=== PATIENT | male | born 1960 | race Caucasian/White ===

== ENCOUNTER 2022-02-24 07:15 | Inpatient (IN) | payer MEDICAID ==
[~2022-02-24] VITALS: Ht 157.5 cm; Wt 68.0 kg
[2022-02-24] MEDS ORDERED: IOHEXOL-350 100 ML BOTTLE ONE (08:28)
[2022-02-24 09:14] LABS: BASOPHILS % 0.2 % (0.0-2.0); EOSINOPHILS % 0.4 % (0.0-5.0); HEMOGLOBIN. 15.4 g/dL (14.0-18.0); LYMPHOCYTES % 13.6 % (20.0-50.0); MEAN CORPUSCULAR HEMOGLOBIN 32.7 pg (28.0-32.0); MEAN CORPUSCULAR VOLUME 97.2 fL (80.0-94.0); MEAN PLATELET VOLUME 9.5 fl (7.4-10.4); MONOCYTES % 5.1 % (2.0-8.0); NEUTROPHILS % 80.7 % (40.0-76.0); PLATELET 197 x1000/uL (130-400); RED BLOOD CELL COUNT 4.73 mill/uL (4.7-6.1); RED CELL DISTRIBUTION WIDTH 12.9 % (11.6-14.6)
[2022-02-24 09:17] LABS: CLARITY URINE CLEAR (CLEAR); COLOR URINE YELLOW (YELLOW); KETONES URINE NEGATIVE (NEGATIVE); LEUKOCYTE ESTERASE URINE NEGATIVE (NEGATIVE); NITRITE URINE NEGATIVE (NEGATIVE); OCCULT BLOOD URINE NEGATIVE (NEGATIVE); PH URINE 6.5 (4.5-8.0); PROTEIN URINE NEGATIVE (NEGATIVE); SPECIFIC GRAVITY URINE 1.045 (1.005-1.030); UROBILINOGEN URINE 0.2 E.U./dL (0.2-1.0)
[2022-02-24 09:17] LABS: CHLORIDE 108 mEq/L (98-107)
[2022-02-24 09:25] LABS: ETHANOL BLOOD < 10 mg/dL
[2022-02-24 09:30] LABS: *AMPHETAMINES SCREEN URINE NEGATIVE (NEGATIVE); *BARBITURATES SCREEN URINE NEGATIVE (NEGATIVE); *BENZODIAZEPINES SCREEN URINE NEGATIVE (NEGATIVE); *COCAINE SCREEN URINE NEGATIVE (NEGATIVE); CANNABINOID URINE SCREEN NEGATIVE (NEGATIVE); METHADONE URINE SCREEN NEGATIVE (NEGATIVE); OPIATES URINE SCREEN NEGATIVE (NEGATIVE); PHENCYCLIDINE URINE SCREEN NEGATIVE (NEGATIVE)
[2022-02-24] MEDS ORDERED: ASPIRIN 325MG EC TABLET PO ONE (11:00)
[2022-02-24] MEDS ORDERED: HYDRALAZINE 20MG/ML VIAL IV ONE (11:00)
[2022-02-24] MEDS ORDERED: IPRATROPIUM/ALBUTEROL 0.5-3(2.5)MG/3ML NEB NEB PRN (11:30)
[2022-02-24] MEDS ORDERED: NITROGLYCERIN 0.4MG TABLET SL SL PRN (11:30)
[2022-02-24] MEDS ORDERED: CLONIDINE 0.1MG TABLET PO PRN (11:30)
[2022-02-24] MEDS ORDERED: DOCUSATE SODIUM 100MG CAPSULE PO PRN (11:30)
[2022-02-24] MEDS ORDERED: ACETAMINOPHEN 325MG TABLET PO PRN ×2 (11:30)
[2022-02-24] MEDS ORDERED: MAGNESIUM/ALUMINUM HYDROXIDE/SIMETHICONE 30ML UDC PO PRN (11:30)
[2022-02-24] MEDS ORDERED: ONDANSETRON HCL 4MG/2ML INJ IV PRN (11:30)
[2022-02-24] MEDS ORDERED: ZOLPIDEM TARTRATE 5MG TABLET PO PRN (11:30)
[2022-02-24] MEDS ORDERED: GUAIFENESIN 200MG/10ML SUGAR FREE UDC PO PRN (11:30)
[2022-02-24] MEDS ORDERED: KETOROLAC 15MG/ML VIAL IV PRN (11:30)
[2022-02-24] MEDS: AMLODIPINE 10MG TABLET PO SCH (12:30)
[2022-02-24] MEDS: ENOXAPARIN 40MG/0.4ML SYR SUBCUT SCH (13:00)
[2022-02-24 16:09] LABS: CREATINE KINASE 82 IU/L (39-308); CREATINE KINASE MB FRACTION < 1.0 ng/mL (0.5-3.6)
[2022-02-24 16:46] VITALS: BP 161/77
[2022-02-24 17:53] VITALS: BP 161/77
[2022-02-24 20:00] VITALS: BP 134/67
[2022-02-24] MEDS: FAMOTIDINE 20MG TABLET PO SCH (21:20)
[2022-02-25] VITALS: BP 136/76
[2022-02-25 02:51] LABS: CREATINE KINASE MB FRACTION 1.2 ng/mL (0.5-3.6)
[2022-02-25 04:00] VITALS: BP 114/61
[2022-02-25 07:09] LABS: CHLORIDE 110 mEq/L (98-107)
[2022-02-25 07:10] LABS: BASOPHILS % 0.3 % (0.0-2.0); EOSINOPHILS % 1.1 % (0.0-5.0); HEMATOCRIT. 41.8 % (42.0-52.0); HEMOGLOBIN. 14.2 g/dL (14.0-18.0); LYMPHOCYTES % 18.6 % (20.0-50.0); MEAN CORPUSCULAR HEMOGLOBIN 33.2 pg (28.0-32.0); MEAN CORPUSCULAR VOLUME 97.6 fL (80.0-94.0); MEAN PLATELET VOLUME 9.1 fl (7.4-10.4); MONOCYTES % 6.9 % (2.0-8.0); NEUTROPHILS % 73.1 % (40.0-76.0); PLATELET 192 x1000/uL (130-400); RED BLOOD CELL COUNT 4.29 mill/uL (4.7-6.1); RED CELL DISTRIBUTION WIDTH 12.9 % (11.6-14.6)
[2022-02-25 07:29] LABS: PHOSPHORUS 2.7 mg/dL (2.5-4.9)
[2022-02-25 08:00] VITALS: BP 131/97
[2022-02-25] MEDS: FAMOTIDINE 20MG TABLET PO SCH ×2 (09:32→20:49)
[2022-02-25] MEDS: AMLODIPINE 10MG TABLET PO SCH (09:32)
[2022-02-25] MEDS: ASPIRIN 325MG EC TABLET PO SCH (09:32)
[2022-02-25] MEDS: ENOXAPARIN 40MG/0.4ML SYR SUBCUT SCH (09:33)
[2022-02-25 12:00] VITALS: BP_SYST 139; BP_SYST 39; BP_DIAS 68
[2022-02-25 16:00] VITALS: BP 109/65
[2022-02-25 20:00] VITALS: BP 140/84
[2022-02-25] MEDS: ATORVASTATIN CALCIUM 10MG TABLET PO SCH (20:49)
[2022-02-26 03:14] VITALS: BP 129/77
[2022-02-26 08:00] VITALS: BP 127/58
[2022-02-26] MEDS: ASPIRIN 325MG EC TABLET PO SCH (08:09)
[2022-02-26] MEDS: FAMOTIDINE 20MG TABLET PO SCH ×2 (08:10→20:24)
[2022-02-26] MEDS: AMLODIPINE 10MG TABLET PO SCH (08:10)
[2022-02-26] MEDS: ENOXAPARIN 40MG/0.4ML SYR SUBCUT SCH (08:11)
[2022-02-26] MEDS: CLOPIDOGREL 75MG TABLET PO SCH (09:42)
[2022-02-26 11:43] VITALS: BP 135/62
[2022-02-26 16:00] VITALS: BP 147/76
[2022-02-26 20:00] VITALS: BP 141/84
[2022-02-26] MEDS: ATORVASTATIN CALCIUM 10MG TABLET PO SCH (20:25)
[2022-02-27] VITALS: BP 121/90
[2022-02-27 04:00] VITALS: BP 120/79
[2022-02-27] MEDS: CLOPIDOGREL 75MG TABLET PO SCH (07:43)
[2022-02-27] MEDS: AMLODIPINE 10MG TABLET PO SCH (07:43)
[2022-02-27] MEDS: FAMOTIDINE 20MG TABLET PO SCH (07:43)
[2022-02-27] MEDS: ENOXAPARIN 40MG/0.4ML SYR SUBCUT SCH (07:43)
[2022-02-27 08:00] VITALS: BP 140/76
[2022-02-27] MEDS ORDERED: AMLO10TA80 PO (08:23)
[2022-02-27] MEDS ORDERED: FAMO20TA8 PO (08:23)
[2022-02-27] MEDS ORDERED: ATOR10TA PO (08:23)
[2022-02-27] MEDS ORDERED: CLOP75TA15 PO (08:23)
[2022-02-27 08:33] VITALS: BP 126/70
== END 2022-02-27 09:10 | disposition home or self-care (01) | DRG 45 ==
LOC: ER 07:15 → EDBEDREQTM 10:51 → EDBEDREQSVC 10:51 → EDBEDREQ 10:51 → ENRESERV 15:21 → 8WST 19:10
PROVIDERS: ADMIT Internal Medicine; ATTEND Internal Medicine
DX: I63.9 Cerebral infarction, unspecified (principal); E78.5 Hyperlipidemia, unspecified; I16.1 Hypertensive emergency; R53.1 Weakness; F17.210 Nicotine dependence, cigarettes, uncomplicated; F10.20 Alcohol dependence, uncomplicated; Z79.899 Other long term (current) drug therapy; Z83.3 Family history of diabetes mellitus
CPT/HCPCS: 36415; 70496; 70498; 70551; 71045; 80053; 80061; 80305; 80320; 81003; 82550; 82553; 82607; 82746; 83036; 83540; 83550; 83735; 84100; 84439; 84443; 84484; 85025; 92523; 93005; 93306; 93970; 97161; 99291; J0360; J1650; Q9967; G0480

== ENCOUNTER 2022-03-05 07:50 | Inpatient (IN) | payer MEDICAID ==
[~2022-03-05] VITALS: Ht 162.6 cm; Wt 73.9 kg
[~2022-03-05 07:50] MED LIST: AMLO10TA80 PO; ATOR10TA PO; CLOP75TA15 PO; FAMO20TA8 PO
[2022-03-05 09:07] LABS: BASOPHILS % 0.1 % (0.0-2.0); EOSINOPHILS % 0.3 % (0.0-5.0); HEMOGLOBIN. 15.6 g/dL (14.0-18.0); LYMPHOCYTES % 9.6 % (20.0-50.0); MEAN CORPUSCULAR HEMOGLOBIN 33.1 pg (28.0-32.0); MEAN CORPUSCULAR VOLUME 97.3 fL (80.0-94.0); MEAN PLATELET VOLUME 8.8 fl (7.4-10.4); MONOCYTES % 4.8 % (2.0-8.0); NEUTROPHILS % 85.2 % (40.0-76.0); PLATELET 248 x1000/uL (130-400); RED BLOOD CELL COUNT 4.72 mill/uL (4.7-6.1); RED CELL DISTRIBUTION WIDTH 13.1 % (11.6-14.6)
[2022-03-05] MEDS ORDERED: ITRA100C MT (10:13)
[2022-03-05] MEDS ORDERED: SULF1TAB48 MT (10:14)
[2022-03-05 13:01] LABS: CHLORIDE 109 mEq/L (98-107)
[2022-03-05 13:16] LABS: ETHANOL BLOOD < 10 mg/dL
[2022-03-05 16:15] VITALS: BP 125/79
[2022-03-05 17:00] VITALS: BP 125/79
[2022-03-05 20:00] VITALS: BP 125/75
[2022-03-05] MEDS: AMLODIPINE 10MG TABLET PO SCH (20:01)
[2022-03-05] MEDS: CLOPIDOGREL 75MG TABLET PO SCH (20:03)
[2022-03-05] MEDS: ATORVASTATIN CALCIUM 10MG TABLET PO SCH (20:27)
[2022-03-05] MEDS: FAMOTIDINE 20MG TABLET PO SCH (20:27)
[2022-03-06] VITALS (7 sets, daily range): BP systolic 123–139; BP diastolic 68–79
[2022-03-06] MEDS: FAMOTIDINE 20MG TABLET PO SCH ×2 (09:14→21:25)
[2022-03-06] MEDS: AMLODIPINE 10MG TABLET PO SCH (09:14)
[2022-03-06] MEDS: CLOPIDOGREL 75MG TABLET PO SCH (09:14)
[2022-03-06] MEDS ORDERED: ENOXAPARIN 40MG/0.4ML SYR SUBCUT SCH (13:00)
[2022-03-06 16:23] LABS: BASOPHILS % 0.3 % (0.0-2.0); HEMATOCRIT. 41.6 % (42.0-52.0); HEMOGLOBIN. 14.8 g/dL (14.0-18.0); LYMPHOCYTES % 20.7 % (20.0-50.0); MEAN CORPUSCULAR HEMOGLOBIN 33.8 pg (28.0-32.0); MEAN CORPUSCULAR VOLUME 95.3 fL (80.0-94.0); MEAN PLATELET VOLUME 8.8 fl (7.4-10.4); PLATELET 244 x1000/uL (130-400); RED BLOOD CELL COUNT 4.37 mill/uL (4.7-6.1); RED CELL DISTRIBUTION WIDTH 12.4 % (11.6-14.6)
[2022-03-06 16:27] LABS: CHLORIDE 111 mEq/L (98-107)
[2022-03-06] MEDS: ENOXAPARIN 40MG/0.4ML SYR SUBCUT SCH (17:25)
[2022-03-06] MEDS: ATORVASTATIN CALCIUM 10MG TABLET PO SCH (21:25)
[2022-03-07 04:00] VITALS: BP 125/69
[2022-03-07 08:00] VITALS: BP 133/78
[2022-03-07] MEDS: FAMOTIDINE 20MG TABLET PO SCH ×2 (09:56→20:36)
[2022-03-07] MEDS: CLOPIDOGREL 75MG TABLET PO SCH (09:56)
[2022-03-07] MEDS: AMLODIPINE 10MG TABLET PO SCH (09:56)
[2022-03-07] MEDS: ENOXAPARIN 40MG/0.4ML SYR SUBCUT SCH (09:57)
[2022-03-07 12:00] VITALS: BP 125/81
[2022-03-07] MEDS ORDERED: ACETAMINOPHEN 325MG TABLET PO PRN (13:45)
[2022-03-07 16:00] VITALS: BP 137/76
[2022-03-07 20:00] VITALS: BP 110/65
[2022-03-07] MEDS: ATORVASTATIN CALCIUM 10MG TABLET PO SCH (20:36)
[2022-03-07 21:05] VITALS: BP 110/68
== END 2022-03-07 21:35 | disposition home or self-care (01) | DRG 47 ==
LOC: ER 08:04 → 6WST 14:07 → EDBEDREQ 14:13 → EDBEDREQTM 14:13 → ENRESERV 15:03
PROVIDERS: ADMIT Family Medicine; ATTEND Family Medicine
DX: G45.9 Transient cerebral ischemic attack, unspecified (principal); E78.5 Hyperlipidemia, unspecified; I10 Essential (primary) hypertension; F17.210 Nicotine dependence, cigarettes, uncomplicated; F10.10 Alcohol abuse, uncomplicated; Z86.73 Personal history of transient ischemic attack (TIA), and cerebral infarction without residual deficits
CPT/HCPCS: 36415; 70551; 71045; 80053; 80061; 80320; 83036; 84484; 85025; 93005; 97161; 97165; 99285; J1650; G0480